=== PATIENT | male | born 1970 | race Caucasian/White ===

== ENCOUNTER 2022-04-21 14:53 | Emergency (ER) | payer OTHER, SELFPAY ==
[2022-04-21 14:58] VITALS: BP 131/83; PULSE 85; TEMP 37; O2SAT 96
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
== END 2022-04-21 16:55 | disposition home or self-care (01) ==
PROVIDERS: Emergency Provider Registered Nurse Emergency
DX: S01.111A Laceration without foreign body of right eyelid and periocular area, initial encounter (principal); V18.4XXA Pedal cycle driver injured in noncollision transport accident in traffic accident, initial encounter; Y93.55 Activity, bike riding; Z23 Encounter for immunization
CPT/HCPCS: 12013; 90471; 99281; 99282